=== PATIENT | male | born 1990 | race Caucasian/White ===

== ENCOUNTER 2016-08-03 19:03 | Emergency (ER) | payer OTHER ==
[~2016-08-03] VITALS: Ht 182.9 cm; Wt 151.3 kg
[~2016-08-03 19:03] MED LIST: GABA1CAP PO; IBUP1CAP9 PO; NAPR500T3 PO
[2016-08-03 19:06] VITALS: TEMP 36.8; Ht 182.9 cm; Wt 151.3 kg
--- NOTE | 2016-08-03 19:30 | EMERGENCY ROOM VISIT NOTE ---
History Report prepared by Pamela: Ken Heller Under the Supervision of: Dr. Dharmesh Schroeder M.D. First contact with patient: 19:16 Chief Complaint: RECTAL BLEEDING Stated Complaint: BLOOD IN STOOL Nursing Triage Summary: Pt reports "feeling under the weather" this past week. Congestion, n/v a couple days ago. reports seeing blood in stool today, 1x. pt c/o heart racing at times and then stops. denies pain, denies SOB. Hx of hernia History of Present Illness The patient is a 26 year old male who presents to the Emergency Room with complaints of an episode of rectal bleeding that occurred a half hour ago. He says he has been feeling under the weather for the past week, with a cough, congestion, nausea, and episodes of vomiting. The patient notes that this morning, his symptoms had worsened. He says that a half hour ago, he had a bowel movement for the first time today, but it had about a teaspoon of normal bright red blood in it. The patient states that he has had 2 episodes over the past week where his heart races. The episodes last around 10 seconds. He had an additional episode while lying on the couch prior to arrival today. The patient denies any rectal pain, shortness of breath, fevers, or achiness. The patient does have a history of a hernia, which he had a year ago, and ever since then, he notes that he has had discomfort in his lower left quadrant when he sneezes. The patient has been assessed for this discomfort before, and has been told that nothing abnormal can be found. Source of History: patient Onset: A half hour ago Position: other (rectum) Quality: other (bleeding, normal bright red blood) Timing: other (episode) Associated Symptoms: + cough, + nausea, + vomiting, No SOB, No fevers Note: Associated symptoms: Congestion. Episodes of racing heartbeat. Denies any rectal pain or achiness. Review of Systems See HPI for pertinent positives & negatives. A total of 10 systems reviewed and were otherwise negative. Past Medical & Surgical Medical Problems: (1) Asthma (2) Benign hypertension (3) Bronchitis (4) Tonsillectomy and adenoidectomy Old medical records were reviewed. Nurse's notes were reviewed and I agree with. Family History Diabetes mellitus FH: heart disease FHx: cancer Hypertension Social History Smoking Status: Former Smoker Alcohol Use: occasionally Marital Status: in relationship Housing Status: lives with significant other Occupation Status: employed Current/Historical Medications Scheduled Gabapentin (Neurontin), 100 MG PO TID Scheduled PRN Dextromethorphan-Guaifenesin (Mucinex Dm), 1 TAB PO Q12 PRN for COLD SYMPTOMS Dextromethorphan-Phenylephrine (Daytime Multi-Symptom Col), 1 DOSE PO DIRECTED PRN for COLD SYMPTOMS Allergies Coded Allergies: Ziprasidone (Verified Allergy, Mild, ILLNESS, 08/03/16) Haloperidol (Verified Adverse Reaction, Severe, DIZZY, MUSCLE SPASMS IN JAW, 08/03/16) Physical Exam Vital Signs Date Time Temp Pulse Resp B/P Pulse Ox O2 Delivery O2 Flow Rate FiO2 08/03/16 20:15 84 20 162/88 97 08/03/16 19:06 36.8 111 18 158/81 94 Room Air Physical Exam General: Well developed well nourished non ill appearing young male in no acute distress, breathing comfortably on room air. Normal speech. Occasional cough. HEENT: Normal cephalic atraumatic. Pupils are equal round and reactive to light. Extraocular movements are intact. Oropharynx is pink with moist mucous membranes. No swelling of the mouth lips or tongue. Neck: Supple with a midline trachea. No meningeal signs or stiffness, no JVD or bruits. No Stridor. Chest: Clear to auscultation bilaterally. No wheezes or rhonchi. No increased work of breathing. Heart: regular rate and rhythm. Abdomen: Soft nontender, nondistended without rebound guarding or rigidity. Rectal: Normal tone, no masses, brown stool, Guaiac negative. Extremities: No cyanosis clubbing or edema. No calf tenderness or assymetry Spine/Back. Non tender to palpation. No CVA tenderness Skin: Good turgor without rashes. Neurologic exam: Cranial nerves two through 12 are intact. Motor and sensation are intact and symmetrical throughout. Medical Decision & Procedures ER Provider Diagnostic Interpretation: X-ray results as stated below per interpretation by me and the radiologist: CHEST ONE VIEW PORTABLE CLINICAL HISTORY: Chest pain. Blood in stool. COMPARISON STUDY: Chest radiograph January 15, 2013. FINDINGS: Lung volumes are normal. Lungs are clear. There is no pneumothorax or pleural effusion. Cardiac size is normal. Mediastinal contours are normal. There is no evidence of pulmonary edema. IMPRESSION: No acute cardiopulmonary findings. Electronically signed by: Keyshawn Aguilar M.D. 08/03/2016 8:04 PM Dictated Date/Time: 08/03/2016 8:04 PM Laboratory Results Test 08/03/16 19:54 Bedside Hemoglobin 12.9 g/dl (14.0-18.0) Bedside Hematocrit 38 % (42-52) Bedside Sodium 143 mEq/L (135-144) Bedside Potassium 3.4 mEq/L (3.3-5.0) Bedside Chloride 105 mEq/L (101-112) Bedside Total CO2 23 mEq/l (24-31) Anion Gap 20.0 mmol/L (16-25) Bedside Blood Urea Nitrogen 12 mg/dl (7-18) Bedside Creatinine 1.0 mg/dl (0.6-1.3) Bedside Glucose (other) 108 mg/dl (70-99) Bedside Ionized Calcium (Joanna) 1.14 mmol/l (1.12-1.32) ED Course 1916: Past medical records reviewed. The patient was evaluated in room B3B, and a complete history and physical examination were performed. 2007: Upon reevaluation, the patient is resting comfortably. I discussed the results and treatment plan with him. He verbalized agreement of the treatment plan. The patient will be discharged home. Medical Decision Differentials include, but are not limited to; GI bleed, anal fissure, viral illness, pneumonia. This patient comes in as described above. He's had some viral-like illness type symptoms for several days. Now he has had a cough. He looks well on exam and is non-hypoxemic. He has occasional dry cough. His lungs are clear. I did a chest x-ray and there are no abnormal findings. There is nothing to suggest congestive heart failure, pneumonia, or pneumothorax. On rectal exam, he has no masses or tenderness his stool was brown and guaiac negative and has no evidence of GI bleed. I did an i-STAT as well he has no significant anemia with a hemoglobin 12.9 and electrolyte or metabolic abnormalities. I think most likely is a viral illness. At this point, he has no evidence of GI bleeding but I told given a close eye on things and may been that he has anal fissure or tear. He's only had one bowel movement today. He should return if: Worsening of symptoms, increasing or further bleeding, shortness of breath, any new problems or concerns. Impression Primary Impression: Rectal bleeding Additional Impression: URI (upper respiratory infection) Scribe Attestation The scribe's documentation has been prepared under my direction and personally reviewed by me in its entirety. I confirm that the note above accurately reflects all work, treatment, procedures, and medical decision making performed by me. Departure Information Dispostion Home / Self-Care Referrals Emerita Jj M.D. (PCP) Forms HOME CARE DOCUMENTATION FORM, IMPORTANT VISIT INFORMATION, WORK / SCHOOL INSTRUCTIONS Patient Instructions My [facility] Additional Instructions Rest. Drink plenty of fluids. Return if: Worsening of symptoms, fever or chills, further bleeding, abdominal pain, any new problems or concerns Follow-up with your doctor in 1-2 days for recheck Problem Qualifiers
[2016-08-03] MEDS ORDERED: DEXTCAP PO (19:38)
[2016-08-03] MEDS ORDERED: DEXT30TA7 PO (19:38)
--- NOTE | 2016-08-03 20:06 | DIAGNOSTIC IMAGING REPORT ---
CHEST ONE VIEW PORTABLE CLINICAL HISTORY: Chest pain. Blood in stool. COMPARISON STUDY: Chest radiograph January 15, 2013. FINDINGS: Lung volumes are normal. Lungs are clear. There is no pneumothorax or pleural effusion. Cardiac size is normal. Mediastinal contours are normal. There is no evidence of pulmonary edema. IMPRESSION: No acute cardiopulmonary findings. Electronically signed by: Keyshawn Aguilar M.D. 08/03/2016 8:04 PM Dictated Date/Time: 08/03/2016 8:04 PM
[2016-08-03 20:08] LABS: ISTAT HEMOGLOBIN 12.9 g/dl (14.0-18.0); ISTAT IONIZED CALCIUM 1.14 mmol/l (1.12-1.32)
[2016-08-03 20:15] VITALS: BP 162/88; PULSE 84; O2SAT 97
== END 2016-08-03 20:16 | disposition home or self-care (01) ==
LOC: C.EDB 19:07
DX: K62.5 Hemorrhage of anus and rectum (principal); J06.9 Acute upper respiratory infection, unspecified; J45.909 Unspecified asthma, uncomplicated; I10 Essential (primary) hypertension; Z83.3 Family history of diabetes mellitus; Z82.49 Family history of ischemic heart disease and other diseases of the circulatory system; Z80.9 Family history of malignant neoplasm, unspecified; Z87.891 Personal history of nicotine dependence; Z79.899 Other long term (current) drug therapy